=== PATIENT | male | born 1975 | race Two or more races ===

== ENCOUNTER 2019-12-05 11:27 | Emergency (ER) | payer BC ==
--- NOTE | 2019-12-05 12:40 | CR ---
Chest: Portable view of the chest is obtained. Comparison: No prior chest imaging is available. Heart size and mediastinum are normal. Vague areas of peripheral density are seen within both sides of the chest. Lungs otherwise are clear. Bony structures are unremarkable. Impression: 1. Vague densities within the peripheral aspects of both sides of the chest. Difficult to exclude healing rib fractures. 2. Nothing acute is otherwise seen. Diagnostic code #3 This report was dictated in MDT
--- NOTE | 2019-12-05 13:26 | EDM.PDOC ---
ED HPI GENERAL MEDICAL PROBLEM - General Chief Complaint: Respiratory Problem Stated Complaint: SOB,SORE THROAT,CONGESTION,HEADACHE Time Seen by Provider: 12/05/19 11:44 Source of Information: Reports: Patient History Limitations: Reports: Language Barrier - History of Present Illness INITIAL COMMENTS - FREE TEXT/NARRATIVE: Patient is a 44-year-old male presenting to the emergency department with complaints of a 5-day history of nasal congestion, sinus pressure, sore throat, and cough. He states that when symptoms first began, he did have some chills but denies any fever, abdominal pain, nausea, vomiting, diarrhea, or shortness of breath. He has had no known sick contacts, however he does work in an [employer] so he is around people on a daily basis. Denies any chronic medical conditions. He has not been using any cymu-cuk-xfxbeim medications for treatment. 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 - Related Data Allergies Allergy/AdvReac Type Severity Reaction Status Date / Time No Known Allergies Allergy Verified 12/05/19 11:42 Home Meds: Home Meds . [No Known Home Meds] 12/05/19 [History] Past Medical History - Past Health History Medical/Surgical History: Denies Medical/Surgical History Social & Family History - Family History Family Medical History: Noncontributory - Tobacco Use Smoking Status *Q: Never Smoker Second Hand Smoke Exposure: Yes - Caffeine Use Caffeine Use: Reports: Coffee - Recreational Drug Use Recreational Drug Use: No ED ROS GENERAL - Review of Systems Review Of Systems: See Below Constitutional: Reports: Chills. Denies: Fever, Weakness HEENT: Reports: Sinus Problem, Other (Nasal congestion) Respiratory: Reports: Cough. Denies: Shortness of Breath, Wheezing Cardiovascular: Reports: No Symptoms. Denies: Chest Pain, Lightheadedness Endocrine: Reports: No Symptoms GI/Abdominal: Reports: No Symptoms. Denies: Abdominal Pain, Diarrhea, Nausea, Vomiting : Reports: No Symptoms Musculoskeletal: Reports: No Symptoms Skin: Reports: No Symptoms Neurological: Reports: Headache. Denies: Dizziness Psychiatric: Reports: No Symptoms Hematologic/Lymphatic: Reports: No Symptoms Immunologic: Reports: No Symptoms ED EXAM, GENERAL - Physical Exam Exam: See Below Exam Limited By: Language Barrier General Appearance: Alert, WD/WN, No Apparent Distress Throat/Mouth: Normal Inspection, Normal Lips, Normal Teeth, Normal Gums, Normal Oropharynx, Normal Voice, No Airway Compromise Respiratory/Chest: No Respiratory Distress, Lungs Clear, Normal Breath Sounds, No Accessory Muscle Use, Chest Non-Tender Cardiovascular: Normal Peripheral Pulses, Regular Rate, Rhythm, No Edema, No Gallop, No JVD, No Murmur, No Rub Neurological: Alert, Oriented, CN II-XII Intact, Normal Cognition, Normal Gait, Normal Reflexes, No Motor/Sensory Deficits Psychiatric: Normal Affect, Normal Mood Skin Exam: Warm, Dry, Intact, Normal Color, No Rash Course - Vital Signs Last Recorded V/S: Last Vital Signs Temp 98 F 12/05/19 11:43 Pulse 95 12/05/19 11:43 Resp 16 12/05/19 11:43 BP 115/72 12/05/19 11:43 Pulse Ox 95 12/05/19 11:43 - Orders/Labs/Meds Labs: Laboratory Tests 12/05/19 12/05/19 12/05/19 Range/Units 12:23 12:23 13:59 WBC 6.25 (4.23-9.07) K/mm3 RBC 4.87 (4.63-6.08) M/mm3 Hgb 14.1 (13.7-17.5) gm/dl Hct 43.1 (40.1-51.0) % MCV 88.5 (79.0-92.2) fl MCH 29.0 (25.7-32.2) pg MCHC 32.7 (32.2-35.5) g/dl RDW Std Deviation 45.5 H (35.1-43.9) fL Plt Count 267 (163-337) K/mm3 MPV 9.5 (9.4-12.3) fl Neut % (Auto) 66.0 (34.0-67.9) % Lymph % (Auto) 21.8 (21.8-53.1) % Kaufman % (Auto) 10.4 (5.3-12.2) % Eos % (Auto) 0.2 L (0.8-7.0) Baso % (Auto) 1.0 (0.1-1.2) % Neut # (Auto) 4.13 (1.78-5.38) K/mm3 Lymph # (Auto) 1.36 (1.32-3.57) K/mm3 Kaufman # (Auto) 0.65 (0.30-0.82) K/mm3 Eos # (Auto) 0.01 L (0.04-0.54) K/mm3 Baso # (Auto) 0.06 (0.01-0.08) K/mm3 Sodium 143 (136-145) mEq/L Potassium 4.3 (3.5-5.1) mEq/L Chloride 104 (98-107) mEq/L Carbon Dioxide 31 (21-32) mEq/L Anion Gap 12.3 (5-15) BUN 11 (7-18) mg/dL Creatinine 1.0 (0.7-1.3) mg/dL Est Cr Clr Drug Dosing 89.30 mL/min Estimated GFR (MDRD) > 60 (>60) mL/min BUN/Creatinine Ratio 11.0 L (14-18) Glucose 96 (74-106) mg/dL Calcium 8.5 (8.5-10.1) mg/dL Total Bilirubin 0.4 (0.2-1.0) mg/dL AST 122 H (15-37) U/L ALT 138 H (16-63) U/L Alkaline Phosphatase 72 (46-116) U/L C-Reactive Protein 9.4 H* (<1.0) mg/dL Total Protein 7.5 (6.4-8.2) g/dl Albumin 2.9 L (3.4-5.0) g/dl Globulin 4.6 gm/dL Albumin/Globulin Ratio 0.6 L (1-2) COVID-19 PCR Detected H (NOT DETECT) - Re-Assessments/Exams Free Text/Narrative Re-Assessment/Exam: 12/05/19 13:23 As above, patient is a 44-year-old male presenting to the emergency department with complaints of generalized sinus and nasal congestion, sore throat, and cough for the last 5 days. He had some chills initially but denies any fever or abdominal complaints. He denies shortness of breath. Chest x-ray was completed and showed some vague densities within the peripheral aspects of both sides suspicious for possible healing rib fractures. There was no other acute findings. His vital signs have been stable throughout his stay in the ER. Oxygen saturation at 95 to 97% on room air. Lab work was completed and show some mildly elevated liver enzymes as well as a slightly elevated CRP but no other abnormalities. Discussed with patient that he is likely suffering from a viral illness. Recommend [id number] Flonase as needed for sinus and nasal congestion. We will send testing for coronavirus today. He should isolated home until results are available and symptoms have resolved. Will provide him with a note off from work. Discharge instructions as documented. 12/07/19 11:38 Pt notified of positive COVID results. Questions answered. Departure - Departure Time of Disposition: 13:23 Disposition: Home, Self-Care 01 Condition: Good Clinical Impression: Viral respiratory illness - Discharge Information *PRESCRIPTION DRUG MONITORING PROGRAM REVIEWED*: No *COPY OF PRESCRIPTION DRUG MONITORING REPORT IN PATIENT MARIA EUGENIA: No Instructions: Viral Respiratory Infection, [id number] Referrals: PCP,None [Primary Care Provider] - Forms: ED Department Discharge, ED Return to Work/School Form Additional Instructions: You were seen in the emergency department today for a 5-day history of sinus and nasal congestion, sore throat, and cough. Your work-up included a chest x-ray as well as blood work. Her chest x-ray showed no signs of pneumonia. Your blood work was overall normal with the exception of some mildly elevated liver enzymes. Your vital signs were stable in the emergency department. We discussed, you are likely suffering from a viral respiratory illness. Recommend that you use girk-gbq-dlnruzi Flonase twice daily to treat your sinus and nasal congestion. You have been tested for coronavirus today. Results generally take 24 to 72 hours to be completed. You will be notified when these are available. In the meantime, you should quarantine at home until results are available and symptoms have resolved. You have been provided a note off from work. Return to the ER for any new or worsening symptoms of concern. Hoy lo vieron en el departamento de emergencias por un historial de 5 sampson de congestin nasal y sinusal, dolor de garganta y tos. Munoz evaluacin incluy aquiles radiografa de trax y anlisis de efren. Munoz radiografa de trax no mostr signos de neumona. Munoz anlisis de efren fue en general normal con la excepcin de algunas enzimas hepticas levemente elevadas. Mee signos vitales se mantuvieron estables en el departamento de emergencias. Hablamos, es probable que padezca aquiles enfermedad respiratoria viral. Recomiende que use Flonase de venta rasheeda dos veces al da para tratar munoz congestin nasal y sinusal. Hoy le herman hecho aquiles prueba de coronavirus. Los resultados suelen tardar entre 24 y 72 horas en completarse. Se le notificar cuando estn disponibles. Mientras tanto, debe ponerse en cuarentena en casa hasta que los resultados estn disponibles y los sntomas se hayan resuelto. Se le yepez proporcionado aquiles nota de salida del trabajo. Regrese a la geovany de emergencias por cualquier sntoma nuevo o que empeore. Sepsis Event Note (ED) - Evaluation Sepsis Screening Result: No Definite Risk
== END 2019-12-05 14:00 | disposition home or self-care (01) ==
LOC: JD.ED 11:27
DX: U07.1 COVID-19 (principal); J98.8 Other specified respiratory disorders; Z77.22 Contact with and (suspected) exposure to environmental tobacco smoke (acute) (chronic)
CPT/HCPCS: 36415; 71045; 71045-26; 80053; 85025; 86140; 99282; 99283-25; U0002